=== PATIENT | male | born 1950 | race Hispanic/Latino ===

== ENCOUNTER → 2024-12-11 | Outpatient (REF) | payer OTHER, MEDICARE | LOC: RAD 08:53 | PROVIDERS: ATTEND Internal Medicine Gastroenterology | DX: T18.9XXA Foreign body of alimentary tract, part unspecified, initial encounter (principal) | CPT/HCPCS: 71046 ==

== ENCOUNTER → 2024-12-13 | Outpatient (REF) | payer OTHER, MEDICARE | LOC: RAD 16:07 | PROVIDERS: ATTEND Internal Medicine Gastroenterology | DX: T18.9XXA Foreign body of alimentary tract, part unspecified, initial encounter (principal) | CPT/HCPCS: 74019 ==